=== PATIENT | female | born 1975 | race Caucasian/White ===

== ENCOUNTER 2019-05-24 11:56 | Emergency (ER) | payer MEDICAID ==
[~2019-05-24] VITALS: Ht 162.6 cm; Wt 70.3 kg
[~2019-05-24 11:56] MED LIST: FERR28TA PO; PREN-39 PO
[2019-05-24 11:57] VITALS: BP 143/71; PULSE 78; RESP 14; Ht 162.6 cm; Wt 70.3 kg
[2019-05-24] MEDS ORDERED: CEFTRIAXONE 1 GM/50 ML (PMX) 50 ML IVPB STA (12:16)
[2019-05-24] MEDS ORDERED: CEFI400C PO (13:30)
--- NOTE | 2019-05-24 13:35 | ERD ---
ER Documentation Chief Complaint Chief Complaint Pt referred by PMD for r/o UTI, painful urinations X 2 weeks. HPI 43-year-old female was referred by her OB for UTI diagnosed on 619. She has had some dysuria intermittent for 2 weeks. She denies fevers, vomiting, vaginal bleeding. reView of urine culture shows Klebsiella with multiple resistances although intermediate resistance to second generation cephalosporins and sensitive to third-generation cephalosporins. It is resistant to Keflex as well as Macrobid. ROS All systems reviewed and are negative except as per history of present illness. Medications Home Meds Active Scripts Cefixime (Suprax) 400 Mg Capsule, 400 MG PO DAILY for 5 Days, CAP Prov:RUBEN TRUONG MD 05/24/19 Reported Medications Ferrous Sulfate (Ferrous Sulfate) 1 Tab Tablet, 1 TAB PO DAILY 10/30/13 Vits W-Ca,Fe,Fa(<1MG) ( Vitamins) 1 Tab Tablet, 1 TAB PO DAILY 10/30/13 Allergies Allergies: Coded Allergies: No Known Allergies (Verified Allergy, Unknown, 10/30/13) PMhx/Soc Medical and Surgical Hx: pt denies Medical Hx, pt denies Surgical Hx Hx Alcohol Use: No Hx Substance Use: No Hx Tobacco Use: No Smoking Status: Never smoker FmHx Family History: No diabetes, No coronary disease, No other Physical Exam Vitals Vital Signs Date Temp Pulse Resp B/P (MAP) Pulse Ox O2 O2 Flow FiO2 Time Delivery Rate 05/24/19 99.2 78 14 143/71 100 11:57 (95) Physical Exam Const: No acute distress Head: Atraumatic Eyes: Normal Conjunctiva ENT: Normal External Ears, Nose and Mouth. Neck: Full range of motion. No meningismus. Resp: Clear to auscultation bilaterally Cardio: Regular rate and rhythm, no murmurs Abd: Soft, non tender, non distended. Normal bowel sounds Skin: No petechiae or rashes Back: No midline or flank tenderness Ext: No cyanosis, or edema Neur: Awake and alert Psych: Normal Mood and Affect Result Diagram: 05/24/19 1220 05/24/19 1220 Results 24 hrs Laboratory Tests Test 05/24/19 12:20 White Blood Count 8.4 10^3/ul Red Blood Count 4.87 10^6/ul Hemoglobin 14.1 g/dl Hematocrit 41.3 % Mean Corpuscular Volume 84.8 fl Mean Corpuscular Hemoglobin 29.0 pg Mean Corpuscular Hemoglobin Concent 34.1 g/dl Red Cell Distribution Width 13.4 % Platelet Count 288 10^3/UL Mean Platelet Volume 8.8 fl Immature Granulocytes % 0.400 % Neutrophils % 78.8 % Lymphocytes % 12.5 % Monocytes % 7.8 % Eosinophils % 0.1 % Basophils % 0.4 % Nucleated Red Blood Cells % 0.0 /100WBC Immature Granulocytes # 0.030 10^3/ul Neutrophils # 6.6 10^3/ul Lymphocytes # 1.1 10^3/ul Monocytes # 0.7 10^3/ul Eosinophils # 0.0 10^3/ul Basophils # 0.0 10^3/ul Nucleated Red Blood Cells # 0.0 10^3/ul Urine Color YELLOW Urine Clarity SLIGHTLY CLOUDY Urine pH 7.0 Urine Specific [place] 1.018 Urine Ketones NEGATIVE mg/dL Urine Nitrite NEGATIVE mg/dL Urine Bilirubin NEGATIVE mg/dL Urine Urobilinogen NEGATIVE mg/dL Urine Leukocyte Esterase NEGATIVE [place]/ul Urine Microscopic RBC 0 /HPF Urine Microscopic WBC 1 /HPF Urine Squamous Epithelial Cells FEW /HPF Urine Mucus FEW /HPF Urine Hemoglobin NEGATIVE mg/dL Urine Glucose NEGATIVE mg/dL Urine Total Protein NEGATIVE mg/dl Sodium Level 138 mmol/L Potassium Level 3.9 mmol/L Chloride Level 105 mmol/L Carbon Dioxide Level 25 mmol/L Anion Gap 8 Blood Urea Nitrogen 7 mg/dl Creatinine 0.49 mg/dl Est Glomerular Filtrat Rate mL/min > 60 mL/min Glucose Level 122 mg/dl Calcium Level 9.3 mg/dl Current Medications Medications Dose Sig/Alejandra Start Time Status Last (Trade) Ordered Route PRN Stop Time Admin Dose Reason Admin Ceftriaxone 50 ml @ ONCE STAT 05/24/19 DC 05/24/19 Sodium 100 mls/hr IVPB 12:16 05/24/19 12:26 12:45 Procedures/MDM Patient presents with laboratory evidence of UTI with multiple resistance. She is approximately 6 weeks by dates. IV was obtained. CBC is normal and CMP shows no acute abnormalities. Urine and x-ray shows no signs of infection. Patient was nonetheless given Rocephin 1 g IV. Will treat with Suprax, instructions for fluids, return precautions, such as fevers, vomiting or abdominal pain, new or worsening symptoms. No signs or symptoms to suggest ectopic , acute abdomen, appendicitis, tubo-ovarian abscess, additional concerning signs or symptoms. The patient was stable with no new complaints during the ER course. Clinically, there is no current evidence to suggest meningitis, sepsis, acute abdomen, pneumonia, stroke, acute coronary syndrome, pulmonary embolism, aortic dissection or any other emergent condition appearing to require further evaluation or hospitalization. Patient counseled regarding my diagnostic impression and care plan. Prior to discharge all questions answered. Pt agrees with treatment plan and understands strict return precaution s. Pt is instructed to follow up with primary care provider within 24-48 hours. Precautionary instructions provided including instructions to return to the ER if not improving or for any worsening or changing symptoms or concerns. Disclaimer: Inadvertent spelling and grammatical errors are likely due to EHR/dictation software use and do not reflect on the overall quality of patient care. Also, please note that the electronic time recorded on this note does not necessarily reflect the actual time of the patient encounter. Departure Diagnosis: Primary Impression: Dysuria Condition: Stable Patient Instructions: Dysuria, Urinary Tract Infections in Women Referrals: NO PRIMARY,CARE PHYSICIAN (PCP) Additional Instructions: Urine normal today but will treat given previous results. Recheck for fevers, vomiting, abdominal pain, bleeding, new worsening symptoms. Drink plenty of fluids at home. RUBEN TRUONG MD May 24, 2019 13:35
== END 2019-05-24 13:45 | disposition home or self-care (01) ==
LOC: FTE 11:56
DX: O99.89 Other specified diseases and conditions complicating pregnancy, childbirth and the puerperium (principal); R30.0 Dysuria; Z3A.01 Less than 8 weeks gestation of pregnancy
CPT/HCPCS: 36415; 80048; 81001; 85025; 87086; 96365; J0696; Z7502; 81003